=== PATIENT | male | born 1950 | race Caucasian/White ===

== ENCOUNTER → 2018-07-20 | Outpatient (CLI) | payer MEDICARE ==
[~2018-07-20] MED LIST: AMLO-104 PO; AMLO-111 PO; ATOR10TA65 PO; ATOR20TA65 PO; BLOO-292 TP; IBUP-56 PO; LEVO25TA61 PO; LISI-362 PO; METF500T4 PO; PNEU0.5D3 IM
[2018-07-20 07:59] LABS: PLATELET COUNT, AUTOMATED 205 K/uL (150-450)
[2018-07-20 08:46] LABS: LDL CHOLESTEROL 44 mg/dl
== END ==
LOC: LAB 07:44
PROVIDERS: ATTEND Internal Medicine
DX: E11.9 Type 2 diabetes mellitus without complications (principal); E03.9 Hypothyroidism, unspecified; E78.5 Hyperlipidemia, unspecified; I10 Essential (primary) hypertension
CPT/HCPCS: 36415; 82040; 82247; 82310; 82374; 82435; 82465; 82565; 82947; 83036; 83718; 84075; 84132; 84155; 84295; 84443; 84450; 84460; 84478; 84520; 85025

== ENCOUNTER → 2018-07-26 | Outpatient (CLI) | payer MEDICARE ==
[~2018-07-26] MED LIST changes: +FLU180SY11 IM; +PNEI IJ
--- NOTE | 2018-07-26 17:52 | RADIOLOGY IMAGING REPORT ---
FACILITY: [facility] - [place] PATIENT NAME: Sandra Franklin : 1950 MR: [id number] V: [id number] EXAM DATE: ORDERING PHYSICIAN: ALEXSANDER MARTINEZ TECHNOLOGIST: Location: [facility] [place] Patient: Sandra Franklin : 1950 Visit/Account:[id number] Date of Sevice: 07/26/2018 Exam type: WRIST LEFT MIN 3 VIEW History: Left wrist sprain Comparison: None. Findings: There is a small bony density projecting along the dorsal medial aspect of the distal left radius. T he margins appear relatively smooth suggesting this is an old injury. No gross evidence of acute fra cture or dislocation seen involving the left wrist IMPRESSION: 1. No gross evidence of acute fractures can occasionally left wrist. There is a small well-corticat ed bony density projecting just dorsal and medial to the distal aspect left radius suggesting an old injury Report Dictated By: Beena Lundy MD at 07/26/2018 5:22 PM Report E-Signed By: Beena Lundy MD at 07/26/2018 5:24 PM WSN:[email or web address]
--- NOTE | 2018-07-26 17:53 | RADIOLOGY IMAGING REPORT ---
FACILITY: [facility] PATIENT NAME: Sandra Franklin : 1950 MR: [id number] V: [id number] EXAM DATE: ORDERING PHYSICIAN: ALEXSANDER MARTINEZ TECHNOLOGIST: Location: [facility] Patient: Sandra Franklin : 1950 Visit/Account:[id number] Date of Sevice: 07/26/2018 Exam type: KNEE 3 VIEW RIGHT History: Osteoarthritis of the right knee Comparison: None. Findings: There is no evidence of acute fracture, dislocation or significant arthritic change involving the rig ht knee. No lytic or blastic bone lesion seen.. There suggestion of mild soft tissue swelling over the anterior aspect. IMPRESSION: 1. There suggestion of mild soft tissue swelling over the anterior aspect the right knee although no evidence of acute fracture dislocation or significant arthritic change seen Report Dictated By: Beena Lundy MD at 07/26/2018 5:24 PM Report E-Signed By: Beena Lundy MD at 07/26/2018 5:25 PM WSN:[email or web address]
== END ==
LOC: RAD 16:23
PROVIDERS: ATTEND Internal Medicine
DX: M17.11 Unilateral primary osteoarthritis, right knee (principal); M25.461 Effusion, right knee; S66.919A Strain of unspecified muscle, fascia and tendon at wrist and hand level, unspecified hand, initial encounter

== ENCOUNTER → 2018-08-10 | Outpatient (REF) | payer MEDICARE | LOC: ZZPBJ 16:11 | PROVIDERS: ATTEND Orthopaedic Surgery Hand Surgery | DX: M25.561 Pain in right knee (principal); M25.461 Effusion, right knee | CPT/HCPCS: 87071; 87205; 89050; 89060 ==

== ENCOUNTER → 2018-09-28 | Outpatient (CLI) | payer MEDICARE ==
[~2018-09-28] MED LIST changes: +ALLO100T70 PO; +COLC0.6T2 PO
[2018-09-28 16:25] LABS: PLATELET COUNT, AUTOMATED 206 K/uL (150-450)
== END ==
LOC: LAB 15:28
PROVIDERS: ATTEND Internal Medicine
DX: M25.561 Pain in right knee (principal)
CPT/HCPCS: 36415; 82040; 82247; 82310; 82374; 82435; 82565; 82947; 84075; 84132; 84155; 84295; 84450; 84460; 84520; 84550; 85025

== ENCOUNTER → 2018-10-31 | Outpatient (CLI) | payer MEDICARE, BC ==
[~2018-10-31] MED LIST changes: -AMLO-111 PO; +AMLO-125 PO
--- NOTE | 2018-10-31 17:45 | EKG ---
FACILITY: [facility] PATIENT NAME: INGRID BENSON : [id number] MR: [id number] V: [id number] EXAM DATE: ORDERING PHYSICIAN: EDIL LY TECHNOLOGIST: FERMÍN Morris Reason : PRE-OP Blood Pressure : / mmHG Vent. Rate : 062 BPM Atrial Rate : 062 BPM P-R Int : 140 ms QRS Dur : 094 ms QT Int : 380 ms P-R-T Axes : -11 -75 044 degrees QTc Int : 385 ms Sinus rhythm Left axis deviation Abnormal ECG Confirmed by LISETTE VANN ([id number]) on 10/31/2018 10:19:49 PM Referred By: MALACHI Confirmed By:LISETTE VANN
== END ==
LOC: RESP 17:20
PROVIDERS: ATTEND Anesthesiology
DX: Z01.810 Encounter for preprocedural cardiovascular examination (principal); R94.31 Abnormal electrocardiogram [ECG] [EKG]; S83.206A Unspecified tear of unspecified meniscus, current injury, right knee, initial encounter
CPT/HCPCS: 93005

== ENCOUNTER → 2018-12-07 | Outpatient (CLI) | payer MEDICARE, BC ==
[~2018-12-07] MED LIST changes: +AZIT-17 PO; +PRED20TA6 PO
[2018-12-07 14:23] LABS: PLATELET COUNT, AUTOMATED 221 K/uL (150-450)
--- NOTE | 2018-12-07 16:37 | RADIOLOGY IMAGING REPORT ---
FACILITY: [facility] PATIENT NAME: Sandra Franklin : 1950 MR: [id number] V: [id number] EXAM DATE: ORDERING PHYSICIAN: ALEXSANDER MARTINEZ TECHNOLOGIST: Location: [facility] [place] Patient: Sandra Franklin : 1950 Visit/Account:[id number] Date of Sevice: 12/07/2018 2 VIEWS CHEST INDICATION: Cough, shortness of breath. Hypertension. Diabetes. COMPARISON: None available FINDINGS: Cardiomediastinal silhouette and pulmonary vessels within normal limits. There is no focal infiltrate or lobar consolidation. There is no pneumothorax or pleural effusion. No nodule. Upper abdomen is unremarkable. No acute bony abnormality. IMPRESSION: 1. No acute cardiopulmonary process. Report Dictated By: Reagan Kirkland at 12/07/2018 4:32 PM Report E-Signed By: Reagan Kirkland at 12/07/2018 4:33 PM WSN:[id number]
== END ==
LOC: LAB 14:01
PROVIDERS: ATTEND Internal Medicine
DX: J40 Bronchitis, not specified as acute or chronic (principal); I10 Essential (primary) hypertension; E11.9 Type 2 diabetes mellitus without complications; M10.9 Gout, unspecified
CPT/HCPCS: 36415; 71046; 82040; 82247; 82310; 82374; 82435; 82565; 82947; 83036; 84075; 84132; 84155; 84295; 84443; 84450; 84460; 84520; 84550; 85025; 85379

== ENCOUNTER → 2019-01-23 | Outpatient (CLI) | payer MEDICARE, BC ==
[2019-01-23 07:52] LABS: PLATELET COUNT, AUTOMATED 204 K/uL (150-450)
[2019-01-23 09:18] LABS: LDL CHOLESTEROL 32 mg/dl
== END ==
LOC: LAB 07:29
PROVIDERS: ATTEND Internal Medicine
DX: Z12.5 Encounter for screening for malignant neoplasm of prostate (principal); E11.9 Type 2 diabetes mellitus without complications; I10 Essential (primary) hypertension; E03.9 Hypothyroidism, unspecified; E78.5 Hyperlipidemia, unspecified
CPT/HCPCS: 36415; 83036; 84443; 85025; G0103; 82040; 82247; 82310; 82374; 82435; 82465; 82565; 82947; 83718; 84075; 84132; 84153; 84155; 84295; 84450; 84460; 84478; 84520